=== PATIENT | male | born 1995 | race African-American/Black ===

== ENCOUNTER 2020-11-29 05:05 | Emergency (ER) | payer MEDICAID, OTHER ==
[~2020-11-29] VITALS: Ht 182.9 cm; Wt 100.0 kg
[2020-11-29] MEDS ORDERED: LEVETIRACETAM 500MG PREMIX 100 ML IV ONE (05:30)
[2020-11-29 05:41] LABS: BASOPHILS % 0.7 % (0.0-2.0); EOSINOPHILS % 0.9 % (0.0-5.0); HEMATOCRIT. 41.5 % (42.0-52.0); HEMOGLOBIN. 13.8 g/dL (14.0-18.0); LYMPHOCYTES % 34.9 % (20.0-50.0); MEAN CORPUSCULAR HEMOGLOBIN 28.6 pg (28.0-32.0); MEAN CORPUSCULAR VOLUME 86.4 fL (80.0-94.0); MEAN PLATELET VOLUME 7.5 fl (7.4-10.4); MONOCYTES % 11.1 % (2.0-8.0); NEUTROPHILS % 52.4 % (40.0-76.0); PLATELET 309 x1000/uL (130-400); RED BLOOD CELL COUNT 4.81 mill/uL (4.7-6.1); RED CELL DISTRIBUTION WIDTH 12.7 % (11.6-14.6)
[2020-11-29 05:46] LABS: CHLORIDE 101 mEq/L (98-107)
[2020-11-29 05:56] LABS: ETHANOL BLOOD < 10 mg/dL
[2020-11-29 10:47] VITALS: BP 114/63
[2020-11-29 10:54] LABS: CLARITY URINE CLEAR (CLEAR); COLOR URINE YELLOW (YELLOW); KETONES URINE NEGATIVE (NEGATIVE); LEUKOCYTE ESTERASE URINE NEGATIVE (NEGATIVE); NITRITE URINE NEGATIVE (NEGATIVE); OCCULT BLOOD URINE NEGATIVE (NEGATIVE); PROTEIN URINE NEGATIVE (NEGATIVE); SPECIFIC GRAVITY URINE 1.014 (1.005-1.030)
[2020-11-29 11:29] LABS: *AMPHETAMINES SCREEN URINE NEGATIVE (NEGATIVE); *BARBITURATES SCREEN URINE NEGATIVE (NEGATIVE); *BENZODIAZEPINES SCREEN URINE NEGATIVE (NEGATIVE); *COCAINE SCREEN URINE NEGATIVE (NEGATIVE); METHADONE URINE SCREEN NEGATIVE (NEGATIVE); OPIATES URINE SCREEN NEGATIVE (NEGATIVE)
[2020-11-29 11:30] LABS: CANNABINOID URINE SCREEN NEGATIVE (NEGATIVE); PHENCYCLIDINE URINE SCREEN NEGATIVE (NEGATIVE)
[2020-11-29] MEDS ORDERED: KEPP500 MT (11:50)
== END 2020-11-29 12:14 | disposition home or self-care (01) ==
LOC: ER 05:05
DX: G40.909 Epilepsy, unspecified, not intractable, without status epilepticus (principal); I49.9 Cardiac arrhythmia, unspecified
CPT/HCPCS: 36415; 80053; 80305; 80320; 81003; 85025; 93005; 96365; 96366; 99284; J1953; G0480

== ENCOUNTER 2021-03-20 06:11 | Emergency (ER) | payer OTHER ==
[~2021-03-20] VITALS: Ht 185.4 cm; Wt 100.0 kg
[~2021-03-20 06:11] MED LIST: KEPP500 MT
[2021-03-20] MEDS ORDERED: LEVETIRACETAM 1000MG PREMIX 100 ML IV ONE (06:30)
[2021-03-20 06:39] LABS: BASOPHILS % 0.6 % (0.0-2.0); EOSINOPHILS % 1.8 % (0.0-5.0); HEMATOCRIT. 40.9 % (42.0-52.0); HEMOGLOBIN. 13.5 g/dL (14.0-18.0); MEAN CORPUSCULAR HEMOGLOBIN 28.8 pg (28.0-32.0); MEAN CORPUSCULAR VOLUME 87.5 fL (80.0-94.0); MEAN PLATELET VOLUME 7.7 fl (7.4-10.4); MONOCYTES % 10.9 % (2.0-8.0); NEUTROPHILS % 46.7 % (40.0-76.0); PLATELET 254 x1000/uL (130-400); RED BLOOD CELL COUNT 4.68 mill/uL (4.7-6.1); RED CELL DISTRIBUTION WIDTH 13.9 % (11.6-14.6)
[2021-03-20 06:46] LABS: CHLORIDE 105 mEq/L (98-107)
[2021-03-20 06:52] LABS: ETHANOL BLOOD < 10 mg/dL
[2021-03-20 09:30] VITALS: BP 122/62
== END 2021-03-20 10:19 | disposition home or self-care (01) ==
LOC: ER 06:11
DX: G40.909 Epilepsy, unspecified, not intractable, without status epilepticus (principal); R94.31 Abnormal electrocardiogram [ECG] [EKG]
CPT/HCPCS: 36415; 80053; 80320; 82962; 85025; 93005; 96374; 99284; J1953; G0480

== ENCOUNTER 2024-02-13 07:47 | Emergency (ER) | payer OTHER ==
[~2024-02-13] VITALS: Ht 177.8 cm; Wt 89.0 kg
[2024-02-13 07:49] VITALS: BP 128/73; PULSE 103; RESP 16; TEMP 98.9; O2SAT 99
== END 2024-02-13 09:15 | disposition left against medical advice (07) ==
LOC: ER 08:13
DX: R56.9 Unspecified convulsions (principal)
CPT/HCPCS: 99283

== ENCOUNTER 2024-06-29 06:46 | Emergency (ER) | payer MEDICAID ==
[~2024-06-29] VITALS: Ht 182.9 cm; Wt 85.0 kg
[2024-06-29 06:48] VITALS: O2SAT 99
[2024-06-29 07:25] VITALS: BP 137/87; PULSE 79; RESP 16; TEMP 98.6; O2SAT 99
[2024-06-29] MEDS: LIDOCAINE HCL/PF 1% 10 MG/ML 5ML VIAL INFIL ONE (08:39)
== END 2024-06-29 11:09 | disposition home or self-care (01) ==
LOC: ER 06:46
DX: S01.112A Laceration without foreign body of left eyelid and periocular area, initial encounter (principal); S01.81XA Laceration without foreign body of other part of head, initial encounter; X58.XXXA Exposure to other specified factors, initial encounter; Y93.89 Activity, other specified; Y92.89 Other specified places as the place of occurrence of the external cause; Y99.8 Other external cause status
CPT/HCPCS: 70486; 12011; 99284; J3490; Z7610 ×2

== ENCOUNTER 2024-07-11 17:09 | Emergency (ER) | payer MEDICAID, OTHER ==
[~2024-07-11] VITALS: Ht 188 cm; Wt 111.0 kg
[2024-07-11 17:10] VITALS: O2SAT 98
[2024-07-11 17:15] VITALS: BP 141/62; PULSE 82; RESP 18; TEMP 98.8; O2SAT 100
== END 2024-07-11 19:00 | disposition home or self-care (01) ==
LOC: ER 17:09
DX: S01.81XD Laceration without foreign body of other part of head, subsequent encounter (principal); X58.XXXD Exposure to other specified factors, subsequent encounter
CPT/HCPCS: 99281

== ENCOUNTER 2025-08-18 07:47 | Emergency (ER) | payer MEDICAID ==
[~2025-08-18] VITALS: Ht 188 cm; Wt 91.0 kg
[2025-08-18 07:49] VITALS: O2SAT 98
[2025-08-18] MEDS ORDERED: LEVETIRACETAM 0 MG in SODIUM CHLORIDE 0.9% 100 ML IV ONE (08:00)
[2025-08-18 08:22] LABS: BASOPHILS % 0.8 % (0.0-2.0); EOSINOPHILS % 0.9 % (0.0-5.0); HEMATOCRIT. 43.0 % (42.0-52.0); HEMOGLOBIN. 14.1 g/dL (14.0-18.0); LYMPHOCYTES % 37.5 % (20.0-50.0); MEAN PLATELET VOLUME 7.9 fl (7.4-10.4); MONOCYTES % 10.9 % (2.0-8.0); NEUTROPHILS % 49.9 % (40.0-76.0); PLATELET 314 x1000/uL (130-400); RED BLOOD CELL COUNT 4.97 mill/uL (4.7-6.1); RED CELL DISTRIBUTION WIDTH 13.0 % (11.6-14.6)
[2025-08-18 08:46] LABS: CREATININE 1.6 mg/dL (0.6-1.3); UREA NITROGEN BLOOD 11 mg/dL (9-23)
[2025-08-18 08:47] LABS: ETHANOL BLOOD < 10 mg/dL (<10)
[2025-08-18 10:57] VITALS: BP 119/75; PULSE 65; RESP 17; TEMP 36.6; O2SAT 100
== END 2025-08-18 10:59 | disposition home or self-care (01) ==
LOC: ER 07:47
DX: G40.909 Epilepsy, unspecified, not intractable, without status epilepticus (principal); Z79.899 Other long term (current) drug therapy
CPT/HCPCS: 80048; 80320; 85025; 36415; 93005; 96365; 99284; J1953; J7050; G0480